=== PATIENT | female | born 1985 | race African-American/Black ===

== ENCOUNTER 2019-05-23 08:20 | Day surgery (SDC) | payer OTHER ==
[2019-05-23] MEDS ORDERED: propofoL 200 MG/20 ML VIAL IV ONE (08:23)
[2019-05-23] MEDS ORDERED: GLYCOPYRROLATE 0.2 MG/ML SYR ONE ×2 (08:24)
[2019-05-23] MEDS ORDERED: LIDOCAINE 2% MPF 5 ML VIAL ONE (08:25)
[2019-05-23] MEDS ORDERED: dexAMETHasone 10 MG/ML VIAL ONE (08:25)
[2019-05-23] MEDS ORDERED: FENTANYL CITR 250 MCG/5 ML ONE ×2 (08:25→09:57)
[2019-05-23] MEDS ORDERED: ROCURONIUM 50 MG/5 ML VIAL IV ONE (08:26)
[2019-05-23] MEDS ORDERED: NEOSTIGMINE 1 MG/ML -5 ML ONE (08:28)
[2019-05-23] MEDS ORDERED: ONDANSETRON 4 MG/2 ML VIAL ONE ×2 (08:28→13:02)
[2019-05-23] MEDS ORDERED: MIDAZOLAM HCL 2 MG/2 ML INJ ONE (08:41)
[2019-05-23] MEDS ORDERED: Ringers Lactate 1,000 ML IV ONE ×3 (08:49→09:00)
[2019-05-23] MEDS ORDERED: LIDOCAINE 1% W/EPI 1:100,000 MDV 20 ML VIAL ONE (08:59)
[2019-05-23] MEDS ORDERED: NS 0.9% VIAL 40 ML ONE (08:59)
[2019-05-23] MEDS ORDERED: Mastisol Adhesive Liq ONE (08:59)
[2019-05-23] MEDS ORDERED: GENTAMICIN SULF 80 MG/2ML INJ ONE (08:59)
[2019-05-23] MEDS ORDERED: BACITRACIN 50000 UNIT VIAL ONE (09:00)
[2019-05-23] MEDS ORDERED: CEFAZOLIN SODIUM 1 GM/VIAL ONE (09:00)
[2019-05-23] MEDS ORDERED: CLINDAMYCIN 900MG/D5W 900 MG/50 ML IVPB IV ONE (09:09)
[2019-05-23] MEDS ORDERED: SCOPOLAMINE HYDROBROMIDE PATCH TD ONE (09:09)
[2019-05-23] MEDS ORDERED: NS 0.9% VIAL 10 ML ONE ×2 (09:49→09:53)
[2019-05-23] MEDS ORDERED: MORPHINE 10 MG/ML VIAL ONE (09:56)
[2019-05-23] MEDS ORDERED: EPHEDRINE SULF 50 MG/ML VIAL ONE (12:11)
[2019-05-23] MEDS ORDERED: KETOROLAC 30 MG/ML INJ ONE (14:49)
[2019-05-23] MEDS: HYDROMORPHONE HCL 1 MG/ML INJ ONE ×2 (14:50→14:56)
[2019-05-23] MEDS ORDERED: HYDROMORPHONE HCL 1 MG/ML INJ ONE (15:07)
[2019-05-23] MEDS ORDERED: CODEINE 30MG/APAP 300MG TAB ONE (16:02)
[2019-05-23 17:12] VITALS: BP 117/76; TEMP 97.5; O2SAT 99
--- NOTE | 2019-05-24 02:01 | OP ---
Surgeon: Vance Shepherd MD Machinist General: Bautista. Preoperative Diagnosis: Breast enlargement and descent. Postoperative Diagnosis: Breast enlargement and descent. Procedure Performed: Breast life and reduction. Anesthesia: General. Procedure In Detail: After satisfactory induction of general anesthesia, chest was prepped with DuraPrep, dry sterile drapes applied in the usual manner. A 5 cm template was used to outline the right and left areola. Skin was incised and then transverse and inferior incisions were made. The intervening skin was de-epithelialized with EpiCut or dermabrader. Transverse incision was made. Then the flap was thinned to 1.6 cm. Flap elevation continued towards the sternum, clavicle, anterior and axillary line. Done on both sides simultaneously. The patient had inferior incisions made and then de- epithelialized tissue was rotated to the cone. Prior to conization, extra breast tissue lateral and inferior was resected and then conization performed with 2-0 PDS sutures. Straps were elevated in the right breast at the 12 o' clock, 1:30, and 3 o'clock positions. The straps were woven in and out the pectoralis major back to the base of the cone, back to pectoralis muscle, and back to the base of the cone, sewn to themselves with 2-0 PDS sutures. This was done stent with 12 o'clock and 1:30 strap. The 3 o'clock strap was sewn over sternum and 3 o'clock position with a 2-0 Ethibond. Mirror image was done on the opposite side. The wounds were temporarily stapled shut. Patient was sat up, checked for symmetry. The dog ears were then marked out. The wounds were irrigated with antibiotic solution. 10 VIKTORIYA brought out of axilla and then excess dog-ears were cut out with a scalpel. Electrocautery was used for hemostasis. Wound closed with 3-0 Vicryl subcu, 3-0 PDS running subcuticular tied in the vertical meridian of the breast. After this was done on both sides and the patient was sat up, site for new nipple-areolar complex was marked out. Tissue was cored out, with a 5 cm template and nipples delivered, sewn with interrupted 4-0 PDS, followed by 4-0 PDS running subcuticular. Dressings of tincture of benzoin, Steri-Strips, 5 x 5's, fluffs, and Dileep wrap. The patient tolerated the procedure well and returned to recovery. The amount removed from the right breast was 544, left was 346. PABLO/ARMANDO Voice ID: [id number] Report ID: [id number]
== END 2019-05-23 17:08 | disposition home or self-care (01) ==
LOC: OR 08:20
PROVIDERS: ATTEND Specialist
PROC: 0H0V0ZZ Alteration of Bilateral Breast, Open Approach (ICD-10-PCS; 2019-05-23)
PROC: 0H0V0ZZ Alteration of Bilateral Breast, Open Approach (ICD-10-PCS; principal; 2019-05-23 09:00)
DX: N62 Hypertrophy of breast (principal); N64.81 Ptosis of breast; Z88.0 Allergy status to penicillin
CPT/HCPCS: 81025; 88305; 19318; 19316; J2704; J1580; J2250; J3010 ×2; J1100; J1170 ×2; J2710; J7120 ×3; J2405 ×2; J0690